=== PATIENT | female | born 1995 | race Hispanic/Latino ===

== ENCOUNTER → 2018-10-26 | Outpatient (REF) | payer OTHER | LOC: M LAB REF 10:20 | PROVIDERS: ATTEND Physician Assistant | DX: J02.9 Acute pharyngitis, unspecified (principal) ==

== ENCOUNTER 2019-03-10 20:19 | Inpatient (IN) | payer OTHER ==
[~2019-03-10] VITALS: Ht 157.5 cm; Wt 57.0 kg
[2019-03-10] MEDS ORDERED: NS 1,000 ML IV ONE (20:30)
[2019-03-10 20:37] LABS: BASO # 0.1 10^3/uL (0.0-0.2); BASO % 0.6 % (0.0-1.0); EOS % 0.3 % (0.0-3.0); HEMATOCRIT 38.3 % (36.0-47.0); HEMOGLOBIN 12.3 g/dl (12.0-15.5); LYMPH # 2.2 10^3/uL (1.5-5.0); MEAN CORPUSCULAR HEMOGLOBIN 29.1 pg (27.0-33.0); MEAN CORPUSCULAR HGB CONC 32.1 g/dl (32.0-36.5); MEAN CORPUSCULAR VOLUME 90.5 fl (80.0-96.0); MONO # 0.6 10^3/uL (0.0-0.8); MONO % 6.4 % (0.0-5.0); NEUTROPHILS # 6.5 10^3/uL (1.5-8.5); NEUTROPHILS % 69.5 % (36.0-66.0); PLATELET COUNT, AUTOMATED 327 10^3/uL (150-450); RED BLOOD COUNT 4.23 10^6/uL (4.00-5.40); WHITE BLOOD COUNT 9.3 10^3/uL (4.0-10.0)
[2019-03-10 21:04] LABS: HCG, SERUM QUALITATIVE NEGATIVE (NEGATIVE)
[2019-03-10 21:32] LABS: ACETAMINOPHEN LEVEL 30.9 UG/ML (10.0-30.0); ALBUMIN 4.6 GM/DL (3.2-5.2); ALT/SGPT 14 U/L (12-78); BILIRUBIN,DIRECT 0.2 MG/DL (0.0-0.2); BILIRUBIN,TOTAL 0.5 MG/DL (0.2-1.0); BLOOD UREA NITROGEN 14 MG/DL (7-18); CALCIUM LEVEL 9.5 MG/DL (8.5-10.1); CARBON DIOXIDE LEVEL 25 MEQ/L (21-32); CHLORIDE LEVEL 102 MEQ/L (98-107); CPK CREATINE PHOSPHOKINASE 99 U/L (26-192); CREATININE FOR GFR 0.69 MG/DL (0.55-1.30); ETHYL ALCOHOL (ETHANOL) < 0.003 % (0.000-0.010); GLOMERULAR FILTRATION RATE > 60.0 (>60); GLUCOSE, FASTING 72 MG/DL (70-100); POTASSIUM SERUM 3.4 MEQ/L (3.5-5.1); SALICYLATE LEVEL < 1.7 MG/DL (5.0-30.0); SODIUM LEVEL 137 MEQ/L (136-145); TOTAL PROTEIN 9.1 GM/DL (6.4-8.2)
[2019-03-10 23:32] LABS: AMPHETAMINES LEVEL URINE NEGATIVE (NEGATIVE); BARBITURATES URINE NEGATIVE (NEGATIVE); BENZODIAZEPINES URINE NEGATIVE (NEGATIVE); CANNABINOIDS URINE POSITIVE (NEGATIVE); COCAINE METABOLITE URINE NEGATIVE (NEGATIVE); METHADONE URINE NEGATIVE (NEGATIVE); OPIATES URINE NEGATIVE (NEGATIVE); PHENCYCLIDINE URINE NEGATIVE (NEGATIVE)
[2019-03-11] MEDS ORDERED: traZODone 50 MG TAB PO PRN (02:15)
[2019-03-11] MEDS ORDERED: MAALOX 30 ML SUSP *UDC PO PRN (02:15)
[2019-03-11] MEDS ORDERED: MOM 30ML SUSPENSION UDC PO PRN (02:15)
[2019-03-11] MEDS ORDERED: IBUPROFEN 400 MG TAB PO PRN (02:15)
[2019-03-11 02:32] VITALS: BP 129/73
[2019-03-11 03:47] VITALS: BP 120/80
--- NOTE | 2019-03-11 10:38 | MHHPEPDOC ---
[facility] History & Physical History and Physical DATE OF ADMISSION: Mar 11, 2019 at 02:10 New Patient Cori Trejo MRN: N/A Date of : N/A Date of Service: 03/11/2019 Chief Complaint "This is a misunderstanding." History of Present Illness The patient, a 23-year-old woman was brought into [facility] after reportedly getting into an argument with a friend and attempting to overdose on Tylenol. Her Tylenol level was just on the edge of normal. The patient was admitted out of an abundance of caution. The patient was met with where she reported that she was feeling better about the situation and stated that she had made statements to a friend that she was going to overdose but in fact had just taken a few tablets for a headache. She reported that she has had difficulties with her and he is currently in the [facility]. She reports this causes her to feel anxious, but denies a majority of any psychiatric symptoms. Review Of Systems Depression: As above. Denies any symptoms. Denies any suicide attempts. Anxiety: The patient denies any excessive worry associated with physical symptoms. They deny any experience of discreet panic in the past. Kelsey: The patient denies any episodes of euphoria/dysphoria associated with decreased need for sleep, hedonism, talkatively or impulsivity lasting longer than 5 days. Psychotic: The patient denies any experiences of auditory or visual hallucinations. They deny any episodes of paranoia or delusional thinking in the past Trauma: The patient denies any traumatic events associated with nightmares or intrusive thoughts. Borderline: The patient screens negative for borderline personality at this junction. Past Psychiatric History The patient reports no history of psychiatric admissions, medication trials or current follow up. Allergies Please see below. Family Psychiatric History The patient denies/is unaware any history of mental health history including addictions and suicide. Social History Patient is currently to her spouse of 2 years, who, identifies as het erosexual . Currently lives with spouse in a rented home. Reports some difficulties with who is currently living in the [facility]. No legal problems at this time or CPS, currently reported. Graduated high school with basic needs reportedly met. Reports that she was born in [facility]. Denies any history of trauma or abuse. Substance Abuse History The patient reports cannabis use in the past, but denies tobacco, alcohol, or illicit drug use. Medical History Patient has no significant past medical history. Mental Status Examination General: Well dressed with good hygiene Speech: Spontaneous and fluid Thought processes: Linear and logical MSK: Smooth and coordinated gait, no signs of tremors or involuntary orofacial movements Thought content: Future orientated Abstract reasoning, and computation: Intact Description of associations: Intact Description of abnormal or psychotic thoughts: Denies any suicidal or homicidal ideation. Denies any auditory or visual hallucinations. Does not appear to be responding to internal stimuli. Does not appear to be endorsing any bizarre or paranoid ideation. Judgment: fair Insight: fair Orientation: Alert and orientated 3 Cognition: Grossly normal Recent and remote memory: Intact Attention span and concentration: Intact Fund of knowledge: Adequate Mood: "okay" Affect: Euthymic with a full range Diagnoses Adjustment disorder, mild Cannabis use disorder, unspec Situational disturbance. Assessment and Plan The patient, a 23-year-old woman with no past psychiatric history, presents after reportedly taking Tylenol. However, her level is only on the higher end of normal suggesting a situation more likely with the patient's original report. She required no medical intervention further supporting that she had not overdosed on Tylenol. The patient will be observed for 48 hours and then discharged. If she continues to deny any suicidal or homicidal ideation and continues to be euthymic signs of depression. The patient will not be extended if she continues to improve she has made it clear that she does not want to stay on a voluntary and thus tomorrow she will be discharged in all likelihood. Disposition Discharge tomorrow if continues to improve. Problem List 1. Risk for suicide. 2. Ineffective coping. Initial Treatment Plan 1. Patient was admitted on a 9.39 legal status. 2. Complete history was obtained. 3. With patients permission, family will be contacted and database will be expanded. 4. Patients medication regimen will be reviewed and changed accordingly. 5. Patient will be provided with protected environment. 6. Patient will be treated with individual, group, and milieu therapies. 7. Patient will receive supportive psych-education. 8. Discharge planning will commence immediately. 9. Outpatient follow-up treatment will be strongly recommended. 10. The initial treatment plan will focus initially on: Estimated Length Of Stay 2 days. Time Spent 70 minutes. Monday Vital Signs Vital Signs Date Time Temp Pulse Resp B/P (MAP) Pulse Ox O2 Delivery O2 Flow Rate FiO2 03/11/19 03:47 97.6 79 16 120/80 (93) Room Air 03/11/19 02:32 100 Laboratory Data 24H Labs Laboratory Tests 2 03/10/19 20:27: Immature Granulocyte % (Auto) 0.2, Neutrophils (%) (Auto) 69.5H, Lymphocytes (%) (Auto) 23.0L, Monocytes (%) (Auto) 6.4H, Eosinophils (%) (Auto) 0.3, Basophils (%) (Auto) 0.6, Neutrophils # (Auto) 6.5, Lymphocytes # (Auto) 2.2, Monocytes # (Auto) 0.6, Eosinophils # (Auto) 0.0, Basophils # (Auto) 0.1, Nucleated Red Blood Cells % (auto) 0.0, Anion Gap 10, Glomerular Filtration Rate > 60.0, Calcium Level 9.5, Total Bilirubin 0.5, Direct Bilirubin 0.2, Aspartate Amino Transf (AST/SGOT) 15, Alanine Aminotransferase (ALT/SGPT) 14, Alkaline Phosphatase 59, Total Creatine Kinase 99, Total Protein 9.1H, Albumin 4.6, Albumin/Globulin Ratio 1.02, Thyroid Stimulating Hormone (TSH) 1.330, Human Chorionic Gonadotropin, Qual NEGATIVE, Salicylates Level < 1.7L, Acetaminophen Level 30.9H, Ethyl Alcohol Level < 0.003 03/10/19 23:01: Urine Opiates Screen NEGATIVE, Urine Methadone Screen NEGATIVE, Urine Barbiturates Screen NEGATIVE, Urine Phencyclidine Screen NEGATIVE, Urine Amphetamines Screen NEGATIVE, Urine Benzodiazepines Screen NEGATIVE, Urine Cocaine Metabolite Screen NEGATIVE, Urine Cannabinoids Screen POSITIVEH 03/10/19 23:57: Acetaminophen Level 11.8 CBC/BMP Laboratory Tests 03/10/19 20:27 Medications No Active Prescriptions or Reported Meds Allergies Coded Allergies: No Known Allergies (Unverified , 03/10/19) GRISELDA HERNANDEZ DO Mar 11, 2019 10:38
[2019-03-11] MEDS ORDERED: POTASSIUM CHLORIDE 10 MEQ SR TABLET PO ONE (12:00)
--- NOTE | 2019-03-11 12:20 | CR ---
DATE OF CONSULTATION: 03/11/2019 CHIEF COMPLAINT: The patient has been admitted to inpatient mental health unit. Medical history and physical is required. HISTORY OF PRESENT ILLNESS: 23-year-old female with no past medical history, admitted to the inpatient mental health unit for depression. Currently denies any changes in weight, insomnia, hypersomnolence, changes in appetite. Denies any cough, shortness of breath, chest pain, pressure, tightness, palpitations, lightheadedness, dizziness, nausea, vomiting, abdominal pain, dysuria, urgency, frequency, bright red blood per rectum, melena, black tarry stools. The hospitalist was called to assess for any medical issues. The patient was noted to have low potassium at 3.4, otherwise no muscle weakness or spasms noted. PAST MEDICAL HISTORY: None. PAST SURGICAL HISTORY: None. SOCIAL HISTORY: No alcohol or drug use. The patient denies any cigarette use. Works as a branch sales manager. ALLERGIES: No known drug allergies. HOME MEDICATIONS: None. HOSPITAL MEDICATIONS: - trazodone 50 mg at night as needed for insomnia - ibuprofen 400 mg every 6 hours as needed for pain - milk of magnesia 30 mL daily as needed for constipation - Mylanta 30 mL as needed every 4 hours for heartburn FAMILY HISTORY: Mother and father are alive in their 40s, no medical problems. The patient denies any family history of hypertension, diabetes, coronary artery disease, myocardial infarction, heart failure, congestive heart failure (CHF), valvular disease, cancers, rheumatologic diseases. REVIEW OF SYSTEMS: As per history of present illness, 12-point system otherwise negative. PHYSICAL EXAMINATION: VITAL SIGNS: Temperature 97.6, pulse 79, respiratory rate 16, blood pressure 120/80, 100% on room air. GENERAL: Awake, alert, oriented times three. Answering questions appropriately. No jugular venous distention (JVD) or thyromegaly. No cervical lymphadenopathy. Moist mucous membranes. No pharyngeal erythema or tonsillar exudates. Tympanic membranes are clear with some cerumen in the left ear. LUNGS: Clear to auscultation. No wheezing, rales or rhonchi. HEART: S1, S2. Sinus rhythm. No murmurs, rubs or gallops. ABDOMEN: Soft, nontender, nondistended. Positive bowel sounds. EXTREMITIES: No cyanosis, clubbing or pitting edema. LABORATORY DATA: 03/10/2019 white count 9.3, hemoglobin 12, hematocrit 38, platelet count 327. Sodium 137, potassium 3.4, chloride 102, bicarbonate 25, BUN 14, creatinine 0.69, glucose 72, calcium 9.5. AST 15, ALT 14, alkaline phosphatase 59, total protein 9.1, albumin 4.6, TSH 1.330, negative HCG. ASSESSMENT AND PLAN: 23-year-old admitted for depressive symptoms. No medical problems or prior admissions for depression. No medical complaints at this time. IMPRESSION: 1. Depression. Managed by primary team. The patient is due to be discharged home tomorrow. 2. Hypokalemia. Repleted with potassium. 3. Deep vein thrombosis (DVT) prophylaxis. Encourage early ambulation. MTDD
--- NOTE | 2019-03-11 12:31 | ECGEPIP ---
[facility] - ED Test Date: 2019-03-10 Pat Name: BUCK DURHAM Department: Room: [place] [address] Gender: Female Net Mender: desirae : 1996-03-04 Requested By: RAMSEY WALTERS Order Number: [id number] Reading MD: Peterson Guo Measurements Intervals Lamont Rate: 71 P: 56 VT: 122 QRS: 59 QRSD: 85 T: 46 QT: 428 QTc: 466 Interpretive Statements SINUS RHYTHM WITH SINUS ARRHYTHMIA NSTTW ABNORMALITIES NO PRIORS FOR COMPARISON Electronically Signed on 03-11-2019 12:31:41 EST by Peterson Guo
[2019-03-11 16:00] VITALS: BP 138/59
[2019-03-12 06:13] VITALS: BP 127/73
--- NOTE | 2019-03-18 15:22 | MHDSPDOC ---
[facility] Discharge Summary Discharge Summary DATE OF ADMISSION: Mar 11, 2019 at 02:10 DATE OF DISCHARGE: Mar 12, 2019 at 08:58 Discharge Cori Trejo MRN: N/A Date of : N/A Date of Service: 03/12/2019 Diagnoses Adjustment disorder, mild Cannabis use disorder, unspec Situational disturbance. History of Present Illness The patient, a 23-year-old woman was brought into [facility] after reportedly getting into an argument with a friend and attempting to overdose on Tylenol. Her Tylenol level was just on the edge of normal. The patient was admitted out of an abundance of caution. The patient was met with where she reported that she was feeling better about the situation and stated that she had made statements to a friend that she was going to overdose but in fact had just taken a few tablets for a headache. She reported that she has had difficulties with her and [facility]. She reports this causes her to feel anxious, but denies a majority of any psychiatric symptoms. Consultants Involved Hospitalist/PCP screening Treatment and Progress On The Unit The patient was admitted to the inpatient unit with abundance of caution. Her Tylenol level was just on the mild end of the upper end of normal, however, she was admitted as there was concern at least suicidal gesture of taking a few Tylenol, in fact that the patient disputes. She reports that she feels that she had made a untrue statement and that her friend had called the police. The patient was guarded during her initial interview, of which there were some concern and the patient was elected to be held for the 48 hours before she would need to be extend on involuntary in order to observe for behavior and better understand if she was at baseline. The patient was observed and had denied suicidality and homicidality throughout vehemently. She attended groups intermittently, although was frightened of the milieu, which was quiet psychotic at that time. She had some behavioral problems and generally engage well with treatment team. Discharge Assessment 23-year-old woman with a history of likely adjustment in a situation disturbance presents after reportedly taking several tablets of Tylenol for unclear reasons. After 48 hours of observation, patient declines any further voluntary extension of her admission and does not meet involuntary criteria for excess 48 hours as she has been denying any suicidal and homicidal ideation, has a mental status exam been behaving herself and has not been demonstrating any concern for behavior that could be ground stick longer period of time. She is elected against further volentary and thus must be discharged in good therese. Mental Status Examination General: Well dressed with good hygiene Speech: Spontaneous and fluid Thought processes: Linear and logical MSK: Smooth and coordinated gait, no signs of tremors or involuntary orofacial movements Thought content: Future orientated Abstract reasoning, and computation: Intact Description of associations: Intact Description of abnormal or psychotic thoughts: Denies any suicidal or homicidal ideation. Denies any auditory or visual hallucinations. Does not appear to be responding to internal stimuli. Does not appear to be endorsing any bizarre or paranoid ideation. Judgment: Fair based on observation. Insight: Improved, although somewhat minimizing the previous situation. Orientation: Alert and orientated 3 Cognition: Grossly normal Recent and remote memory: Intact Attention span and concentration: Intact Fund of knowledge: Adequate Mood: "okay" Affect: Euthymic with a full range Follow Up The social work team worked during the predischarge meeting in order to evaluate for further issues of lethality address them fully before discharge. They worked on safety planning with the patient's family members in order to ensure that the patient will have a safe and effective discharge. Time Spent The amount of time spent in the coordination of care for this patient was approximately 50 minutes. Cori Trejo's Notes Vital Signs/I&Os Vital Signs Date Time Temp Pulse Resp B/P (MAP) Pulse Ox O2 Delivery O2 Flow Rate FiO2 03/12/19 06:13 98.4 80 16 127/73 (91) Medications No Active Prescriptions or Reported Meds Allergies Coded Allergies: No Known Allergies (Unverified , 03/10/19) GRISELDA HERNANDEZ DO Mar 18, 2019 15:22
== END 2019-03-12 08:58 | disposition home or self-care (01) | DRG 882 ==
LOC: M ED 20:19 → M ED INP 03-11 02:10 → M PSY 03-11 03:15
PROVIDERS: ADMIT Psychiatry & Neurology Psychiatry; ATTEND Psychiatry & Neurology Addiction Medicine
DX: F43.20 Adjustment disorder, unspecified (principal); F12.10 Cannabis abuse, uncomplicated; E87.6 Hypokalemia

== ENCOUNTER 2019-07-06 02:26 | Emergency (ER) | payer OTHER ==
[~2019-07-06] VITALS: Ht 154.9 cm; Wt 45.0 kg
[2019-07-06] MEDS ORDERED: diphenhydrAMINE 50MG/ML VIAL (J1200) IM STA ×2 (03:00→03:12)
[2019-07-06] MEDS ORDERED: HALOPERIDOL 5MG/ML VIAL (J1630 PER 1) IM STA ×2 (03:00→03:45)
[2019-07-06 03:11] LABS: BASO % 0.5 % (0.0-1.0); EOS # 0.1 10^3/uL (0.0-0.5); EOS % 1.5 % (0.0-3.0); HEMATOCRIT 36.1 % (36.0-47.0); HEMOGLOBIN 12.1 g/dl (12.0-15.5); LYMPH # 2.1 10^3/uL (1.5-5.0); LYMPH % 34.7 % (24.0-44.0); MEAN CORPUSCULAR HEMOGLOBIN 29.8 pg (27.0-33.0); MEAN CORPUSCULAR HGB CONC 33.5 g/dl (32.0-36.5); MEAN CORPUSCULAR VOLUME 88.9 fl (80.0-96.0); MONO # 0.4 10^3/uL (0.0-0.8); NEUTROPHILS # 3.3 10^3/uL (1.5-8.5); PLATELET COUNT, AUTOMATED 321 10^3/uL (150-450); RED BLOOD COUNT 4.06 10^6/uL (4.00-5.40)
[2019-07-06 03:22] LABS: ALBUMIN 3.8 GM/DL (3.2-5.2); ALT/SGPT 12 U/L (12-78); BILIRUBIN,DIRECT < 0.1 MG/DL (0.0-0.2); BILIRUBIN,TOTAL 0.3 MG/DL (0.2-1.0); BLOOD UREA NITROGEN 10 MG/DL (7-18); CALCIUM LEVEL 8.5 MG/DL (8.5-10.1); CARBON DIOXIDE LEVEL 26 MEQ/L (21-32); CHLORIDE LEVEL 108 MEQ/L (98-107); CREATININE FOR GFR 0.68 MG/DL (0.55-1.30); ETHYL ALCOHOL (ETHANOL) 0.275 % (0.000-0.010); GLOMERULAR FILTRATION RATE > 60.0 (>60); GLUCOSE, FASTING 101 MG/DL (70-100); POTASSIUM SERUM 3.2 MEQ/L (3.5-5.1); SODIUM LEVEL 143 MEQ/L (136-145); TOTAL PROTEIN 8.3 GM/DL (6.4-8.2)
[2019-07-06 03:32] LABS: AMPHETAMINES LEVEL URINE NEGATIVE (NEGATIVE); BARBITURATES URINE NEGATIVE (NEGATIVE); BENZODIAZEPINES URINE NEGATIVE (NEGATIVE); CANNABINOIDS URINE NEGATIVE (NEGATIVE); COCAINE METABOLITE URINE NEGATIVE (NEGATIVE); METHADONE URINE NEGATIVE (NEGATIVE); OPIATES URINE NEGATIVE (NEGATIVE); PHENCYCLIDINE URINE NEGATIVE (NEGATIVE)
[2019-07-06] MEDS ORDERED: ISOVUE-370 76% 100ML VIAL As Ordered ONE (03:43)
--- NOTE | 2019-07-06 04:54 | REPVR ---
PROCEDURE INFORMATION: Exam: CT Head Without Contrast Exam date and time: 07/06/2019 4:16 AM Age: 23 years old Clinical indication: Altered mental status/memory loss; Confusion or disorientation; Patient HX: ETOH, AMS TECHNIQUE: Imaging protocol: Computed tomography of the head without contrast. Radiation optimization: All CT scans at this facility use at least one of these dose optimization techniques: automated exposure control; mA and/or kV adjustment per patient size (includes targeted exams where dose is matched to clinical indication); or iterative reconstruction. COMPARISON: CT Head without contrast 07/06/2019 3:48 AM FINDINGS: Brain: Normal. No hemorrhage. Unremarkable white matter. No mass effect. Ventricles: Normal. No ventriculomegaly. Bones/joints: Unremarkable. No acute fracture. Sinuses: Visualized sinuses are unremarkable. No fluid levels. Mastoid air cells: Poor pneumatization of the right mastoid air cells. Soft tissues: Unremarkable. IMPRESSION: Negative noncontrast head CT. Electronically signed by: Armando Avendaño On 07/06/2019 04:53:54 AM
[2019-07-06] MEDS ORDERED: MULTIVITAMIN -ADULT INJECTION 10 ML, THIAMINE INJection 100 MG, FOLIC ACID 1 MG in NS 1... IV ONE (06:45)
[2019-07-06] MEDS ORDERED: NS 1,000 ML IV ONE (07:45)
[2019-07-06 11:30] VITALS: BP 108/64
== END 2019-07-06 12:05 | disposition home or self-care (01) ==
LOC: EDBD 02:26 → M ED 02:26
DX: F10.121 Alcohol abuse with intoxication delirium (principal)
CPT/HCPCS: 70450; 80048; 80076; 80307; 85025; 93041; 94760; 96365; 96366; 96372; 99285; G0480; J1200; J1630; J3411; Q9967

== ENCOUNTER → 2021-05-05 | Outpatient (REF) | payer OTHER ==
[~2021-05-05] MED LIST: IRON27TA2 PO; ONDA4TAB6 PO; PRENTAB9 PO
== END ==
LOC: M LAB REF 16:06 → MERGE 16:06
PROVIDERS: ATTEND Obstetrics & Gynecology
DX: Z34.83 Encounter for supervision of other normal pregnancy, third trimester (principal)

== ENCOUNTER → 2022-02-07 | Outpatient (CLI) | payer OTHER ==
[~2022-02-07] MED LIST changes: +ACET-683 PO; +ACET-907 PO; +COLA100C5 PO; +IBUP-1022 PO
[2022-02-07 15:33] LABS: HEMATOCRIT 28.4 % (36.0-47.0); HEMOGLOBIN 9.5 g/dl (12.0-15.5); MEAN CORPUSCULAR HEMOGLOBIN 31.7 pg (27.0-33.0); MEAN CORPUSCULAR HGB CONC 33.5 g/dl (32.0-36.5); MEAN CORPUSCULAR VOLUME 94.7 fl (80.0-96.0); PLATELET COUNT, AUTOMATED 218 10^3/uL (150-450); WHITE BLOOD COUNT 7.6 10^3/uL (4.0-10.0)
== END ==
LOC: M LAB 14:11
PROVIDERS: ATTEND Obstetrics & Gynecology
DX: Z36.89 Encounter for other specified antenatal screening (principal)

== ENCOUNTER → 2022-02-16 | Outpatient (CLI) | payer OTHER | LOC: M RAD 12:28 | PROVIDERS: ATTEND Obstetrics & Gynecology | DX: Z34.82 Encounter for supervision of other normal pregnancy, second trimester (principal) ==

== ENCOUNTER → 2022-04-07 | Outpatient (REF) | payer OTHER, MEDICAID | LOC: M LAB REF 16:22 | PROVIDERS: ATTEND Obstetrics & Gynecology | DX: Z34.83 Encounter for supervision of other normal pregnancy, third trimester (principal) ==

== ENCOUNTER 2022-04-19 13:26 | Outpatient (CLI) | payer OTHER, MEDICAID ==
[~2022-04-19] VITALS: Ht 157.5 cm; Wt 66.0 kg
[2022-04-19 13:40] VITALS: BP 99/64
[2022-04-19] MEDS ORDERED: HOME MED LIST COMPLETE! XX SCH (13:40)
== END 2022-04-19 14:22 | disposition home or self-care (01) ==
LOC: M LDO 13:26
PROVIDERS: ATTEND Obstetrics & Gynecology
DX: O26.853 Spotting complicating pregnancy, third trimester (principal); O36.8130 Decreased fetal movements, third trimester, not applicable or unspecified; Z3A.38 38 weeks gestation of pregnancy
CPT/HCPCS: 59025; 76815; G0463